=== PATIENT | female | born 1975 | race Caucasian/White ===

== ENCOUNTER 2017-08-30 20:51 | Emergency (ER) | payer OTHER ==
[2017-08-30 21:15] VITALS: BP 141/92; PULSE 70; O2SAT 98
[2017-08-30] MEDS ORDERED: MOTRIN 600 MG PO ONE (21:24)
[2017-08-30] MEDS ORDERED: MOTRIN 600 MG ONE (21:28)
--- NOTE | 2017-08-30 21:29 | ERPHSYRPT ---
- History of Present Illness Time Seen by Provider: 08/30/17 21:15 Source: patient Exam Limitations: clinical condition Patient Subjective Stated Complaint: knee pain since Monday. no known injury. pain on inside of left knee. Triage Nursing Assessment: pain to left knee. pain on palpation to medial aspect. no known injury. + pedal pulse present. pain with bending and ambulation Physician History: PATIENT COMPLAINS OF LEFT KNEE PAIN FOR 3 DAYS, WORSE UPON WEIGHT BEARING. DENIES TRAUMA OR INJURY. Method of Injury: unknown Occurred: days ago Quality: constant, throbbing Severity of Pain-Max: moderate Severity of Pain-Current: moderate Lower Extremities Pain: knee: left Modifying Factors: Improves With: movement Associated Symptoms: other (PAIN UPON WEIGHT BEARING) Allergies/Adverse Reactions: naproxen Adverse Reaction (Verified 08/30/17 21:25) Immunizations Up to Date: Yes - Review of Systems Constitutional: No Symptoms, No Fever, No Chills Musculoskeletal: Joint Pain, Joint Swelling Neurological: No Symptoms Psychological: No Symptoms - Past Medical History Pertinent Past Medical History: Yes - Past Surgical History Past Surgical History: Yes - Social History Smoking Status: Never smoker Exposure to second hand smoke: No Drug Use: none Patient Lives Alone: No - Female History Hx Now: No - Nursing Vital Signs Nursing Vital Signs: Initial Vital Signs Pulse Rate 70 08/30/17 21:02 Respiratory Rate 18 08/30/17 21:02 Blood Pressure 141/92 08/30/17 21:02 O2 Sat by Pulse Oximetry 98 08/30/17 21:02 Pain Scale Pain Intensity 6 - Physical Exam General Appearance: no apparent distress Knees Exam: left knee: no evidence of injury, soft tissue tenderness (LIMITED RANGE OF MOTION, TENDERNESS OVER MEDIAL FEMORAL CONDYLE, NO JOINT LAXITY UPON VARUS/VALGUS STRESS. NEGATIVE ANTERIONR DRAW SIGN), swelling DTR - Lower Extremities Exam: knee (R): 2+, knee (L): 2+, ankle (R): 2+, ankle ( L): 2+ Neuro/Tendon Exam: normal sensation, normal motor functions Mental Status Exam: alert, oriented x 3, cooperative SpO2 Interpretation: normal SpO2: 98 Oxygen Delivery: Room Air - Radiology Exams Left Knee X-ray Interpretation: Interpreted by me, Negative, No Subluxation (NO FRACTURE) Ordered Tests: Active Orders 24 hr Category Date Time Status Crutches STAT Care 08/30/17 21:29 Active KNEE (3 VIEWS) Stat Exams 08/30/17 21:25 Taken Medication Summary Discontinued Medications Generic Name Dose Route Start Last Admin Trade Name Viviane PRN Reason Stop Dose Admin Ibuprofen 600 mg 08/30/17 21:24 08/30/17 21:28 Motrin 600 Mg PO 08/30/17 21:25 600 mg STAT ONE Administration Ibuprofen Confirm 08/30/17 21:28 Motrin 600 Mg Administered 08/30/17 21:29 Dose 600 mg .[email or web address] .[email or web address] ONE - Departure Time of Disposition: 22:05 Departure Disposition: Home Clinical Impression: LEFT KNEE PAIN Condition: Stable Critical Care Time: No Prescriptions: Codeine Phosphate/APAP #3 [Tylenol #3 Tablet] 1 tab PO Q4H PRN PRN 4 Days # 15 tablet PRN Reason: Pain Ibuprofen 600 mg PO Q6H PRN PRN #20 tablet PRN Reason: Pain
[2017-08-30] MEDS ORDERED: Tylenol #3 Tablet PO ONE (22:04)
[2017-08-30] MEDS ORDERED: Tylenol #3 Tablet ONE (22:09)
--- NOTE | 2017-08-31 08:46 | XRAY ---
Indication: Knee pain. No known injury. Comparison: None 3 views of the left knee demonstrates small nonspecific suprapatellar effusion. No other bony, articular, or soft tissue abnormalities.
== END 2017-08-30 22:30 | disposition home or self-care (01) ==
LOC: ED 20:51
DX: M25.562 Pain in left knee (principal)
CPT/HCPCS: 73562; 99283; 99284; A9270-GY